=== PATIENT | female | born 1950 | race Caucasian/White ===

== ENCOUNTER 2018-07-25 11:17 | Outpatient (CLI) | payer MEDICARE | END 2018-07-25 11:18 | disposition home or self-care (01) | LOC: BICRAD 11:17 | PROVIDERS: ATTEND Podiatrist | DX: M79.671 Pain in right foot (principal); M77.31 Calcaneal spur, right foot ==

== ENCOUNTER 2018-08-04 22:39 | Emergency (ER) | payer MEDICARE ==
--- NOTE | 2018-08-05 07:30 | ULT ---
ULTRASOUND WITH DOPPLER DUPLEX VENOUS LOWER EXTREMITY RIGHT CPT: 55799 ICD-10-PCS: B54D HISTORY: Erythema and edema of right lower extremity. TECHNIQUE: Color flow Doppler, spectral waveform analysis of pulsed Doppler, and vaca-scale imaging with mart titus and augmentation, were used to evaluate the bilateral common femoral, femoral, popliteal, train station server ior tibial, and superficial femoral, veins; and the proximal portions of the profunda femoral and gre ater saphenous, veins. FINDINGS: Appropriate compressibility and flow within the imaged deep vein system right lower extremity without evidence of DVT. IMPRESSION: 1. No evidence of deep vein thrombosis within the visualized right lower extremity. 2. Soft tissue edema. Correlate clinically. POS: JARON
== END 2018-08-05 01:14 | disposition home or self-care (01) ==
LOC: ERS 22:39
DX: L03.115 Cellulitis of right lower limb (principal); E78.5 Hyperlipidemia, unspecified; I11.0 Hypertensive heart disease with heart failure; I50.9 Heart failure, unspecified; E66.9 Obesity, unspecified; F32.9 Major depressive disorder, single episode, unspecified; K21.9 Gastro-esophageal reflux disease without esophagitis; Z79.899 Other long term (current) drug therapy

== ENCOUNTER 2018-10-10 11:18 | Outpatient (CLI) | payer MEDICARE ==
--- NOTE | 2018-10-10 15:24 | RAD ---
RIGHT HEEL 2 VIEWS: Date: 10/10/18 HISTORY: Heel pain. COMPARISON: Heel radiograph dated 07/25/18. FINDINGS: Similar appearance of interfragmentary and caudal screws of the calcaneus. There is lucency along the posterior tuberosity of the calcaneus along the posterior and plantar most screw. Medial malleolar h ardware is also present. Likely a flatfoot deformity. There appears to be some erosive change along the plantar aspect of the posterior tuberosity of the calcaneus. IMPRESSION: 1. Intact hardware. 2. Cortical erosion along the plantar aspect of posterior tuberosity calcaneus likely from chronic o steomyelitis. If there is concern for acute osteomyelitis, MRI would be recommended. There is also dao cency along the plantar and posterior most screw, which may be sequelae of prior bouts of osteomyelit is or loosening. POS: ARNALDO
== END 2018-10-10 11:19 | disposition home or self-care (01) ==
LOC: BICRAD 11:18
PROVIDERS: ATTEND Podiatrist
DX: M79.671 Pain in right foot (principal); Z98.890 Other specified postprocedural states

== ENCOUNTER 2021-09-01 10:42 | Outpatient (CLI) | payer MEDICARE | END 2021-09-01 10:43 | disposition home or self-care (01) | LOC: BICMAMMO 10:42 | PROVIDERS: ATTEND Family Medicine | DX: Z12.31 Encounter for screening mammogram for malignant neoplasm of breast (principal) | CPT/HCPCS: 77063; 77067 ==

== ENCOUNTER 2022-05-22 09:15 | Outpatient (CLI) | payer MEDICARE | END 2022-05-22 09:16 | disposition home or self-care (01) | LOC: ULT 09:15 | PROVIDERS: ATTEND Family Medicine | DX: R60.9 Edema, unspecified (principal); R79.1 Abnormal coagulation profile; M71.22 Synovial cyst of popliteal space [Baker], left knee | CPT/HCPCS: 93970 ==

== ENCOUNTER 2022-11-30 13:09 | Outpatient (CLI) | payer MEDICARE | END 2022-11-30 13:10 | disposition home or self-care (01) | LOC: BICMAMMO 13:09 | PROVIDERS: ATTEND Family Medicine | DX: Z12.31 Encounter for screening mammogram for malignant neoplasm of breast (principal) | CPT/HCPCS: 77063; 77067 ==

== ENCOUNTER 2023-12-09 12:30 | Outpatient (CLI) | payer MEDICARE | END 2023-12-09 12:31 | disposition home or self-care (01) | LOC: BICMAMMO 12:30 | PROVIDERS: ATTEND Family Medicine | DX: Z12.31 Encounter for screening mammogram for malignant neoplasm of breast (principal) | CPT/HCPCS: 77063; 77067 ==